=== PATIENT | male | born 1950 | race Caucasian/White ===

== ENCOUNTER → 2021-08-27 08:52 | Outpatient (CLI) | payer MEDICARE, OTHER, SELFPAY ==
[2021-08-27 19:59] LABS: Alanine Aminotransferase 30 IU/L (<50); Albumin 4.1 g/dL (3.5-5.0); Albumin Globulin Ratio 1.7 (1.0-2.8); Alkaline Phosphatase 88 U/L (38-126); Aspartate Aminotransferase 28 IU/L (17-59); BUN Creatinine Ratio 24.2 (6-22); Bilirubin Total 0.6 mg/dL (0.2-1.3); Blood Urea Nitrogen 22 mg/dL (9-20); Calcium 9.1 mg/dL (8.4-10.2); Carbon Dioxide 29 mmol/L (22-32); Chloride 104 mmol/L (98-107); Cholesterol 151 mg/dL (140-199); Estimated Glomerular Filt Rate > 60.0 mL/min (>60); Globulin 2.4 g/dL (1.7-4.1); Glucose 111 mg/dL (80-110); HDL Cholesterol 64 mg/dL (40-60); HEMOLYSIS < 15 (0-50); LDL Cholesterol Calculated 64 mg/dL (<100); Potassium 4.7 mmol/L (3.4-5.1); Sodium 138 mmol/L (137-145); Total Protein 6.5 g/dL (6.3-8.2); Triglycerides 116 mg/dL (35-150)
[2021-08-27 20:00] LABS: Hematocrit 45.9 % (41-53); Mean Corpuscular HGB Conc 32.7 % (30-36); Mean Corpuscular Hemoglobin 31.9 PG (26-34); Mean Corpuscular Volume 97.5 fL (80-100); Platelet Count 218 X10^3/uL (150-400); Red Blood Cell Count 4.71 X10^6/uL (4.5-5.9); Red Cell Distribution Width 13.9 % (11.6-14.8); White Blood Cell Count 6.2 X10^3/uL (4.5-11.0)
[2021-08-27 20:26] LABS: Neutrophils Absolute Manual 4650 /uL (3000-5900); RBC Morphology Normal Morphology; Total Cells Counted 100
== END ==
PROVIDERS: Family Provider Family Medicine; PCP Family Medicine; Visit Provider Family Medicine
DX: E78.5 Hyperlipidemia, unspecified (principal); I10 Essential (primary) hypertension
CPT/HCPCS: 80053; 80061; 85025

== ENCOUNTER → 2023-05-07 11:56 | Outpatient (CLI) | payer MEDICARE, OTHER, SELFPAY ==
[2023-05-07 19:43] LABS: Add Manual Diff / Slide Review NO; Basophils Absolute Auto 0 /uL (0-100); Basophils Percent Auto 0.7 % (0-2); Eosinophils Absolute Auto 100 /uL (0-450); Hematocrit 44.7 % (41-53); Hemoglobin 15.2 g/dL (13.5-17.5); Lymphocytes Absolute Auto 1000 /uL (1100-4500); Lymphocytes Percent Auto 15.2 % (25-40); Mean Corpuscular Hemoglobin 33.6 PG (26-34); Mean Corpuscular Volume 98.7 fL (80-100); Monocytes Absolute Auto 700 /uL (0-900); Monocytes Percent Auto 10.7 % (3-14); Neutrophils Absolute Auto 4600 /uL (1500-7000); Neutrophils Percent Auto 71.4 % (50-75); Platelet Count 221 X10^3/uL (150-400); Red Blood Cell Count 4.53 X10^6/uL (4.5-5.9); White Blood Cell Count 6.4 X10^3/uL (4.5-11.0)
[2023-05-07 19:46] LABS: Alanine Aminotransferase 40 IU/L (<50); Albumin 4.5 g/dL (3.5-5.0); Albumin Globulin Ratio 1.7 (1.0-2.8); Alkaline Phosphatase 97 U/L (38-126); Aspartate Aminotransferase 33 IU/L (17-59); BUN Creatinine Ratio 19.5 (6-22); Bilirubin Total 0.5 mg/dL (0.2-1.3); Blood Urea Nitrogen 16 mg/dL (9-20); Calcium 9.5 mg/dL (8.4-10.2); Carbon Dioxide 27 mmol/L (22-32); Chloride 102 mmol/L (98-107); Cholesterol 182 mg/dL (140-199); Estimated Glomerular Filt Rate > 60 mL/min (>60); Globulin 2.7 g/dL (1.7-4.1); Glucose 96 mg/dL (80-110); HDL Cholesterol 80 mg/dL (40-60); HEMOLYSIS < 15 (0-50); LDL Cholesterol Calculated 83 mg/dL (<100); Potassium 4.4 mmol/L (3.4-5.1); Sodium 137 mmol/L (137-145); Total Protein 7.2 g/dL (6.3-8.2); Triglycerides 97 mg/dL (35-150)
[2023-05-07 20:17] LABS: Prostate Specific Antigen Scrn 0.712 ng/mL (0.1-4.0)
[2023-05-09 00:18] LABS: x Labcorp Estim. Avg Glu (eAG) 117 mg/dL (.); x Labcorp Hemoglobin A1c 5.7 % (4.8-5.6)
== END ==
PROVIDERS: Family Provider Family Medicine; PCP Family Medicine; Visit Provider Family Medicine
DX: J43.1 Panlobular emphysema (principal); I10 Essential (primary) hypertension; Z12.5 Encounter for screening for malignant neoplasm of prostate; E78.2 Mixed hyperlipidemia; R73.03 Prediabetes
CPT/HCPCS: 80053; 80061; 82043; 82570; 83036; 85025; G0103

== ENCOUNTER → 2023-07-29 09:06 | Outpatient (CLI) | payer MEDICARE, OTHER, SELFPAY ==
[2023-07-29 20:09] LABS: Add Manual Diff / Slide Review NO; Basophils Absolute Auto 100 /uL (0-100); Basophils Percent Auto 1.3 % (0-2); Eosinophils Absolute Auto 300 /uL (0-450); Eosinophils Percent Auto 4.7 % (2-4); Hematocrit 44.2 % (41-53); Hemoglobin 15.1 g/dL (13.5-17.5); Lymphocytes Absolute Auto 1000 /uL (1100-4500); Lymphocytes Percent Auto 15.3 % (25-40); Mean Corpuscular HGB Conc 34.3 % (30-36); Mean Corpuscular Hemoglobin 33.4 PG (26-34); Mean Corpuscular Volume 97.6 fL (80-100); Monocytes Absolute Auto 700 /uL (0-900); Monocytes Percent Auto 10.5 % (3-14); Neutrophils Absolute Auto 4300 /uL (1500-7000); Neutrophils Percent Auto 68.2 % (50-75); Platelet Count 206 X10^3/uL (150-400); Red Blood Cell Count 4.52 X10^6/uL (4.5-5.9); Red Cell Distribution Width 13.8 % (11.6-14.8); Uric Acid 6.7 mg/dL (3.5-8.5); White Blood Cell Count 6.2 X10^3/uL (4.5-11.0)
== END ==
PROVIDERS: Family Provider Family Medicine; PCP Family Medicine; Visit Provider Physician Assistant
DX: H83.09 Labyrinthitis, unspecified ear (principal); M79.89 Other specified soft tissue disorders
CPT/HCPCS: 84550; 85025

== ENCOUNTER → 2023-10-16 13:59 | Outpatient (CLI) | payer MEDICARE, OTHER, SELFPAY ==
--- NOTE | 2023-10-16 14:01 | DI.RAD.S_ITS ---
PROCEDURE: XR TOE RT MIN 2V INDICATIONS: Swelling of R great toe joint TECHNIQUE: 3 views of the right 1st toe(s) acquired. COMPARISON: None. FINDINGS: Bones: No fractures or dislocations. No suspicious bony lesions. Periarticular osteophyte formation at the 1st metatarsophalangeal joint was all as the interphalangeal joints of the digits. Soft tissues: No suspicious soft tissue densities. IMPRESSION: Osteoarthritis. No acute fracture. No osseous lesion. If symptoms and/or clinical suspicion for pathology persist, further assessment with repeat, or advanced imaging (e.g., CT, MRI, or bone scan) may be helpful for further assessment. Dictated by: Prashanth Prater M.D. on 10/16/2023 at 16:20 Approved by: Prashanth Prater M.D. on 10/16/2023 at 16:22
== END ==
PROVIDERS: Family Provider Family Medicine; PCP Student in an Organized Health Care Education/Training Program; Referring Provider Student in an Organized Health Care Education/Training Program; Visit Provider Student in an Organized Health Care Education/Training Program
DX: M19.071 Primary osteoarthritis, right ankle and foot (principal); M25.476 Effusion, unspecified foot
CPT/HCPCS: 73660

== ENCOUNTER → 2024-01-13 10:43 | Outpatient (CLI) | payer MEDICARE, OTHER, SELFPAY | PROVIDERS: Family Provider Family Medicine; PCP Student in an Organized Health Care Education/Training Program; Referring Provider Student in an Organized Health Care Education/Training Program; Visit Provider Student in an Organized Health Care Education/Training Program | DX: J44.9 Chronic obstructive pulmonary disease, unspecified (principal) | CPT/HCPCS: 94060; 94726; 94729 ==

== ENCOUNTER → 2024-03-09 12:14 | Outpatient (CLI) | payer MEDICARE, OTHER, SELFPAY ==
--- NOTE | 2024-03-09 12:17 | DI.CT.S_ITS ---
PROCEDURE: CT CHEST HIGH RESOLUTION INDICATIONS: Abnormal lung function, eval for ILD TECHNIQUE: Noncontrast 1.0 and 5.0 mm thick contiguous axial sections from the pulmonary apex to the posterior costophrenic angles, with 7 mm thick coronal and sagittal MIP reformats. 1 mm thick dynamic expiratory images acquired through the upper, mid, and lower lungs. 1.0 mm thick axial sections acquired from the bijan to the posterior costophrenic angles in the prone end-inspiration position. For radiation dose reduction, the following was used: automated exposure control, adjustment of mA and/or kV according to patient size. COMPARISON: None. FINDINGS: Image quality: Diagnostic. Lower Neck: No enlarged lymph nodes. Thyroid: No thyroid nodules which require sonographic follow up, per consensus guidelines. Axillae: No enlarged lymph nodes. Chest Wall: Left breast calcification or clips. Bones: No suspicious osseous lesion. Lungs and Pleura: No pneumothorax or pleural effusions. No consolidation or suspicious nodules. A few calcified granulomas. Minimal peripheral reticular thickening which persists on the prone sequence. No honeycombing. No bronchiectasis. Central airways are clear. No air trapping. Heart: Heart size is normal. Moderate coronary artery calcifications. No pericardial effusion. Thoracic Vessels: The aorta and pulmonary arteries demonstrate normal size. Mediastinum and Lissa: No enlarged lymph nodes. Esophagus: No wall thickening. No hiatal hernia. Upper Abdomen: Visualized upper abdomen solid organs and bowel loops appear normal. IMPRESSION: 1. No acute airspace opacity. No pleural effusion. 2. No mass or significant pulmonary nodules. No adenopathy. 3. Minimal peripheral reticular thickening. Nonspecific. This could be seen in the setting of early interstitial lung disease. No honeycombing or bronchiectasis. Dictated by: Fran Amador M.D. on 03/09/2024 at 13:36 Approved by: Fran Amador M.D. on 03/09/2024 at 13:42
== END ==
LOC: CT 12:16
PROVIDERS: Family Provider Family Medicine; PCP Student in an Organized Health Care Education/Training Program; Referring Provider Internal Medicine Critical Care Medicine; Visit Provider Internal Medicine Critical Care Medicine
DX: J98.4 Other disorders of lung (principal); I25.10 Atherosclerotic heart disease of native coronary artery without angina pectoris
CPT/HCPCS: 71250

== ENCOUNTER → 2024-07-05 11:50 | Outpatient (CLI) | payer MEDICARE, OTHER, SELFPAY ==
[2024-07-05 13:16] LABS: Alanine Aminotransferase 28 IU/L (<50); Albumin 4.4 g/dL (3.5-5.0); Alkaline Phosphatase 73 U/L (38-126); Aspartate Aminotransferase 29 IU/L (17-59); BUN Creatinine Ratio 21.9 (6-22); Bilirubin Total 0.9 mg/dL (0.2-1.3); Blood Urea Nitrogen 23 mg/dL (9-20); Calcium 9.8 mg/dL (8.4-10.2); Carbon Dioxide 30 mmol/L (22-32); Chloride 104 mmol/L (98-107); Cholesterol 166 mg/dL (140-199); Estimated Glomerular Filt Rate > 60 mL/min (>60); Globulin 2.2 g/dL (1.7-4.1); Glucose 102 mg/dL (80-110); HDL Cholesterol 56 mg/dL (40-60); HEMOLYSIS < 15 (0-50); LDL Cholesterol Calculated 89 mg/dL (<100); Magnesium 2.3 mg/dL (1.6-2.3); Sodium 139 mmol/L (137-145); Total Protein 6.6 g/dL (6.3-8.2); Triglycerides 104 mg/dL (35-150)
[2024-07-05 13:46] LABS: Thyroid Stimulating Hormone 1.12 uIU/mL (0.47-4.68)
== END ==
PROVIDERS: Family Provider Family Medicine; PCP Student in an Organized Health Care Education/Training Program; Referring Provider Internal Medicine Cardiovascular Disease; Visit Provider Internal Medicine Cardiovascular Disease
DX: I10 Essential (primary) hypertension (principal); E78.5 Hyperlipidemia, unspecified
CPT/HCPCS: 36415; 80053; 80061; 83735; 84443

== ENCOUNTER → 2024-12-27 10:35 | Outpatient (CLI) | payer MEDICARE, OTHER, SELFPAY ==
[2024-12-27 19:42] LABS: Cholesterol 137 mg/dL (140-199); HDL Cholesterol 63 mg/dL (40-60); LDL Cholesterol Calculated 56 mg/dL (<100); Triglycerides 90 mg/dL (35-150)
== END ==
PROVIDERS: Family Provider Family Medicine; PCP Student in an Organized Health Care Education/Training Program; Visit Provider Internal Medicine Cardiovascular Disease
DX: E78.5 Hyperlipidemia, unspecified (principal)
CPT/HCPCS: 80061

== ENCOUNTER → 2025-05-25 11:22 | Outpatient (CLI) | payer MEDICARE, OTHER, SELFPAY ==
--- NOTE | 2025-05-25 11:26 | DI.CT.S_ITS ---
PROCEDURE: CT CHEST HIGH RESOLUTION INDICATIONS: H/o interstitial changes, h/o Occupational fiberglass, eval TECHNIQUE: Noncontrast 1.0 and 5.0 mm thick contiguous axial sections from the pulmonary apex to the posterior costophrenic angles, with 7 mm thick coronal and sagittal MIP reformats. 1 mm thick dynamic expiratory images acquired through the upper, mid, and lower lungs. 1.0 mm thick axial sections acquired from the bijan to the posterior costophrenic angles in the prone end-inspiration position. For radiation dose reduction, the following was used: automated exposure control, adjustment of mA and/or kV according to patient size. COMPARISON: [facility], CT, CT CHEST HIGH RESOLUTION, 03/09/2024, 12:22. FINDINGS: Image quality: Diagnostic. Lower Neck: No enlarged lymph nodes. Thyroid: No thyroid nodules which require sonographic follow up, per consensus guidelines. Axillae: No enlarged lymph nodes. Chest Wall: Gynecomastia. Bones: Unremarkable. Lungs and Pleura: No pneumothorax or pleural effusions. Very mild peripheral reticulation of the medial lower lobes, and lateral right lower lobe (series 11, image 123). No bronchiectasis. No honeycombing. No ground-glass. No air trapping. Heart: Heart size is enlarged, with 2 vessel coronary calcifications. No pericardial effusion. Thoracic Vessels: The aorta and pulmonary arteries demonstrate normal size. Mediastinum and Lissa: No enlarged lymph nodes. Esophagus: No wall thickening. No hiatal hernia. Upper Abdomen: Visualized upper abdomen solid organs and bowel loops appear normal. IMPRESSION: No significant progression of very mild peripheral reticulation the lung bases without honeycombing, ground-glass or air trapping. 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 This would have an atypical appearance for pneumoconioses related to fiberglass exposure. Dictated by: Johnson Gutierres M.D. on 05/25/2025 at 14:33 Approved by: Johnson Gutierres M.D. on 05/25/2025 at 14:37
== END ==
PROVIDERS: Family Provider Family Medicine; PCP Student in an Organized Health Care Education/Training Program; Referring Provider Internal Medicine Critical Care Medicine; Visit Provider Internal Medicine Critical Care Medicine
DX: R91.8 Other nonspecific abnormal finding of lung field (principal); I51.7 Cardiomegaly; I25.10 Atherosclerotic heart disease of native coronary artery without angina pectoris; N62 Hypertrophy of breast
CPT/HCPCS: 71250

== ENCOUNTER → 2025-05-25 11:27 | Outpatient (CLI) | payer MEDICARE, OTHER, SELFPAY ==
--- NOTE | 2025-05-25 11:29 | DI.MG.S_ITS ---
MM diagnostic mammo BI: 05/25/2025. BI-RADS: 2 CLINICAL: 74-year old male for bilateral diagnostic mammogram. No personal or first-degree family history of breast cancer. The patient reports pain (3 months) in the right breast. The patient had a prior left breast biopsy. PRIOR EXAMS No prior examinations available. MAMMOGRAPHY TECHNIQUE: 2D and 3D (tomosynthesis) digital mammographic views obtained, with additional images as needed for full coverage. Current study was also evaluated with a Computer Aided Detection (CAD) system. DENSITY A. The breasts are almost entirely fatty. MAMMOGRAPHY FINDINGS Right: Correlating with patient concern, there is an asymmetry consistent with gynecomastia. Left: There are post surgical changes from prior gynecomastia reduction. There are no suspicious masses, calcifications, or other findings in the breast. IMPRESSION: * No evidence of malignancy with benign findings. RECOMMENDATIONS Right * Clinical follow-up is recommended, and further management of palpable abnormalities or other focal signs or symptoms should be based on the results of clinical evaluation. If palpable abnormality or other concerning symptom persists or progresses, further clinical evaluation should be considered. COMMENTS: Findings and recommendations were conveyed to the patient during today's evaluation. OVERALL ASSESSMENT CATEGORY BI-RADS-2: Benign. ELECTRONICALLY SIGNED: Krista Deshpande M.D. on 05/25/2025 at 03:35:45 PM PT Interpreting Station ID: [id number]
== END ==
LOC: MAMMO 11:28
PROVIDERS: Family Provider Family Medicine; PCP Student in an Organized Health Care Education/Training Program; Referring Provider Student in an Organized Health Care Education/Training Program; Visit Provider Student in an Organized Health Care Education/Training Program
DX: N64.4 Mastodynia (principal); R92.313 Mammographic fatty tissue density, bilateral breasts; N62 Hypertrophy of breast; R91.8 Other nonspecific abnormal finding of lung field; I51.7 Cardiomegaly; I25.10 Atherosclerotic heart disease of native coronary artery without angina pectoris
CPT/HCPCS: 71250; 77066; G0279

== ENCOUNTER → 2025-11-02 11:38 | Outpatient (CLI) | payer MEDICARE, OTHER, SELFPAY | LOC: PHYS 11:40 | PROVIDERS: Family Provider Family Medicine; PCP Student in an Organized Health Care Education/Training Program; Referring Provider Student in an Organized Health Care Education/Training Program; Visit Provider Student in an Organized Health Care Education/Training Program | DX: R20.0 Anesthesia of skin (principal) | CPT/HCPCS: 95886; 95910 ==

== ENCOUNTER → 2025-11-21 14:05 | Outpatient (CLI) | payer MEDICARE, OTHER, SELFPAY ==
[2025-11-21 19:10] LABS: Uric Acid 8.1 mg/dL (3.5-8.5)
== END ==
PROVIDERS: Family Provider Family Medicine; PCP Student in an Organized Health Care Education/Training Program; Visit Provider Student in an Organized Health Care Education/Training Program
DX: M10.9 Gout, unspecified (principal)
CPT/HCPCS: 84550